=== PATIENT | female | born 1990 | race Caucasian/White ===

== ENCOUNTER → 2017-11-17 | Outpatient (CLI) | payer OTHER ==
[~2017-11-17] MED LIST: ASCO1TAB5 PO; CHOL200022 PO; DOXY-179 PO; FISH1CAP15 PO; INDO-23 PO; MULT1CAP59 PO; PRED-1 PO; STEROID TOP
--- NOTE | 2017-11-17 16:57 | RADIOLOGY IMAGING REPORT ---
FACILITY: [facility] - [place] PATIENT NAME: TALIB NI : [id number] MR: [id number] V: [id number] EXAM DATE: [id number] ORDERING PHYSICIAN: JESSIE NORRIS TECHNOLOGIST: Brandy Christie PROCEDURE:BILATERAL DIAGNOSTIC DIGITAL MAMMOGRAM WITH CAD ASSISTED INTERPRETATION & 3D TOMOSYNTHESIS COMPARISON:None. INDICATIONS:BREAST LUMP/PALPABLE LUMP UPPER INNER QUADRANT OF RIGHT BREAST WITH NO SONOGRAPHIC CORELATE. FINDINGS: Moderately dense fibroglandular tissue is seen throughout the breasts. The parenchymal pattern has remained stable allowing for difference in mammographic technique & patient positioning. There is no evidence of malignant appearing mass, malignant appearing calcification or other secondary sign of malignancy in either breast. DIAGNOSTIC CATEGORY 1--NEGATIVE. RECOMMENDATIONS: CLINICAL EVALUATION. IMPRESSION: BIRADS 1: Negative. No significant abnormality is seen. Clinical follow up recommended for patient's palpable findings in the upper inner Right breast. Dictated by: Miriam Campbell M.D. on 11/17/2017 at 15:06 Transcribed by: ANNELISE on 11/17/2017 at 15:36 Approved by: Miriam Campbell M.D. on 11/17/2017 at 16:55 [facility]
--- NOTE | 2017-11-17 16:57 | RADIOLOGY IMAGING REPORT ---
FACILITY: [facility] - [place] PATIENT NAME: TALIB NI : [id number] MR: [id number] V: [id number] EXAM DATE: ORDERING PHYSICIAN: JESSIE NORRIS TECHNOLOGIST: Aby Villegas RDMS(ABD,OBGYN,BR),RVT PROCEDURE:US RIGHT BREAST COMPARISON:None. INDICATIONS:RT BREAST LUMP UPPER INNER FINDINGS: Right breast was imaged in the 12 - 3 o'clock position revealing no sonographic abnormality. Therefore clinical follow up recommended for patient's palpable finding. DIAGNOSTIC CATEGORY 1--NEGATIVE. RECOMMENDATIONS: CLINICAL EVALUATION. IMPRESSION: BIRADS1: Negative. No sonographic abnormality identified in the upper inner quadrant of the Right breast. Therefore clinical follow up recommended for patient's palpable finding. Dictated by: Miriam Campbell M.D. on 11/17/2017 at 15:04 Transcribed by: ANNELISE on 11/17/2017 at 15:45 Approved by: Miriam Campbell M.D. on 11/17/2017 at 16:55 [facility]
== END ==
LOC: US 01:33
PROVIDERS: ATTEND Obstetrics & Gynecology
DX: N63.12 Unspecified lump in the right breast, upper inner quadrant (principal)
CPT/HCPCS: 77062; 77066